=== PATIENT | female | born 1995 | race Two or more races ===

== ENCOUNTER 2025-03-27 13:31 | Emergency (ER) | payer OTHER ==
[~2025-03-27] VITALS: Ht 160 cm; Wt 90.3 kg
[2025-03-27] MEDS ORDERED: ZEPBOUND5 MG/0.5 M SQ (13:59)
[2025-03-27] MEDS ORDERED: CEFTRIAXONE SODIUM 2,000 MG VIAL IV ONE (14:30)
[2025-03-27] MEDS ORDERED: AMOX-CLAV 875-1 EAC1 PO (15:44)
== END 2025-03-27 16:20 | disposition home or self-care (01) ==
LOC: ER 13:31
DX: K61.0 Anal abscess (principal)